=== PATIENT | female | born 1985 | race Caucasian/White ===

== ENCOUNTER 2017-11-19 08:00 | Outpatient (CLI) | payer OTHER ==
[2017-11-19 13:10] LABS: BASOPHILS # (AUTO) 0.1 10^3/uL (0.0-0.1); BASOPHILS % (AUTO) 0.8 %; EOSINOPHILS # (AUTO) 0.1 10^3/uL (0.0-0.7); EOSINOPHILS % (AUTO) 1.6 %; HGB - HEMOGLOBIN 13.8 g/dL (12.0-16.0); LYMPHOCYTES # (AUTO) 1.3 10^3/uL (1.5-3.5); LYMPHOCYTES % (AUTO) 17.4 %; MEAN CORPUSCULAR HEMOGLOBIN 29.9 pg (27.0-31.0); MEAN CORPUSCULAR VOLUME 87.7 fL (81.0-99.0); MEAN PLATELET VOLUME 8.3 fL (7.9-10.8); MONOCYTES # (AUTO) 0.6 10^3/uL (0.0-1.0); MONOCYTES % (AUTO) 7.8 %; NEUTROPHILS # (AUTO) 5.3 10^3/uL (1.5-6.6); NEUTROPHILS % (AUTO) 72.4 %; PLT - PLATELET COUNT 245 10^3/uL (130-450); RED BLOOD COUNT 4.62 10^6/uL (4.20-5.40); RED CELL DISTRIBUTION WIDTH 12.3 % (12.0-15.0); WHITE BLOOD COUNT 7.3 x10^3/uL (4.8-10.8)
[2017-11-19 13:33] LABS: ALBUMIN 4.2 g/dL (3.2-5.5); ALBUMIN/GLOBULIN RATIO 1.4 (1.0-2.2); BILIRUBIN,TOTAL 0.6 mg/dL (0.2-1.0); CREATININE 0.7 mg/dL (0.4-1.0); TOTAL PROTEIN 7.2 g/dL (6.7-8.2)
== END 2017-11-19 08:01 | disposition home or self-care (01) ==
LOC: LAB.WCP 08:00
PROVIDERS: ATTEND Family Medicine
DX: Z01.812 Encounter for preprocedural laboratory examination (principal)
CPT/HCPCS: 36415; 80053; 85025

== ENCOUNTER 2018-02-17 11:55 | Outpatient (CLI) | payer OTHER | END 2018-02-17 11:56 | disposition home or self-care (01) | LOC: LAB.WCP 11:55 | PROVIDERS: ATTEND Family Medicine | DX: M25.561 Pain in right knee (principal) | CPT/HCPCS: 36415; 85379 ==

== ENCOUNTER 2018-06-14 12:42 | Outpatient (CLI) | payer OTHER ==
--- NOTE | 2018-06-14 15:40 | Mammography Report ---
Reason: UNSPECIFIED LUMP IN THE LEFT BREAST, UPPER OUTER Q Procedure Date: 06/14/2018 Accession Number: [id number] / [id number] Procedure: [facility]EL - Diagnostic Dig Bilat CPT Code: FULL RESULT: EXAM: Diagnostic Dig Bilat DATE: 06/14/2018 1:37 PM CLINICAL HISTORY: Physician palpated lump upper outer left breast, middle depth. Family history of breast cancer in a paternal aunt. TECHNIQUE: Bilateral CC and MLO views were obtained. COMPARISON: Baseline examination. FINDINGS: The breasts demonstrate heterogeneously dense fibroglandular parenchyma bilaterally. Bilateral breasts. There are no suspicious masses, calcifications or areas of distortion. There is no mammographic finding of concern in region of palpable concern left breast 2:00, 4 cm from nipple. Targeted ultrasound of the left breast is performed by both the technologist and radiologist. The entire upper outer and lateral breast is imaged, with attention to the 1-2 o'clock radians. Only normal tissues are noted. Area of palpable concern was not reproduced at physical exam by the radiologist. IMPRESSION: No imaging findings of concern to correlate to palpable finding upper outer left breast middle depth. Negative. RECOMMENDATION: Recommend clinical follow-up with primary care provider for palpable left breast finding. Patient was advised to return prior to any recommended imaging interval for increase in current symptoms or new symptoms/concerns. Otherwise recommend annual mammography beginning at age 40. BI-RADS CATEGORY 1: Negative STANDARD QUALIFYING STATEMENTS: 1. This examination was not reviewed with the aid of Computer-Aided Detection (CAD). 2. A negative or benign imaging report should not preclude biopsy if clinically suspicious findings are present. 3. Dense breasts may obscure an underlying neoplasm. 4. This examination was reviewed with the aid of 3D breast imaging (tomosynthesis).
== END 2018-06-14 12:43 | disposition home or self-care (01) ==
LOC: DI 12:42
PROVIDERS: ATTEND Physician Assistant Medical
DX: N63.21 Unspecified lump in the left breast, upper outer quadrant (principal); Z80.3 Family history of malignant neoplasm of breast
CPT/HCPCS: 76642; 77066